=== PATIENT | male | born 1930 | race Caucasian/White ===

== ENCOUNTER 2019-02-02 07:13 | Day surgery (SDC) ==
[2019-02-02] MEDS: BETADINE OPTH PREP OP PRN ×2 (07:19→08:45)
[2019-02-02] MEDS: TETRACAINE 0.5% UNIT-DOSE OP PRN ×2 (07:19→08:45)
[2019-02-02] MEDS: CYCLOGYL 2% OPTH OP PRN ×3 (07:20→07:30)
[2019-02-02] MEDS ORDERED: ZOFRAN 4 MG/2 ML IVP ONE (07:35)
[2019-02-02] MEDS ORDERED: LIDOCAINE 1% 20 ML MDV ID STA (07:35)
[2019-02-02 07:40] VITALS: TEMP 97.5
[2019-02-02] MEDS: DEX-MOXI-KETOR OPTH INJ 1/0.5/0.4 MG/ML IO ONE ×2 (08:50→08:58)
[2019-02-02] MEDS: BSS WITH EPINEPHRINE OP ONE ×2 (08:50→08:58)
[2019-02-02] MEDS: LIDOCAINE 1%/PHENYLEPHRINE 1.5% BSS (SURGERY) INTRAOCULA ONE ×2 (08:50→08:58)
[2019-02-02] MEDS ORDERED: VERSED ONE (08:55)
[2019-02-02] MEDS ORDERED: ZOFRAN 4 MG/2 ML ONE (08:55)
[2019-02-02] MEDS ORDERED: SUBLIMAZE ONE (08:55)
[2019-02-02 09:28] VITALS: BP 135/75
== END 2019-02-02 10:00 | disposition home or self-care (01) ==
LOC: SURG 07:13
PROVIDERS: ATTEND Ophthalmology
DX: H25.812 Combined forms of age-related cataract, left eye (principal)

== ENCOUNTER 2019-02-15 07:28 | Day surgery (SDC) ==
[2019-02-15] MEDS: BETADINE OPTH PREP OP PRN ×2 (07:50→08:59)
[2019-02-15] MEDS: TETRACAINE 0.5% UNIT-DOSE OP PRN ×2 (07:50→08:50)
[2019-02-15] MEDS: CYCLOGYL 2% OPTH OP PRN ×3 (07:51→08:01)
[2019-02-15] MEDS ORDERED: BSS WITH EPINEPHRINE OP ONE (07:59)
[2019-02-15] MEDS ORDERED: ZOFRAN 4 MG/2 ML IVP ONE (07:59)
[2019-02-15] MEDS ORDERED: LIDOCAINE 1% 20 ML MDV ID STA (07:59)
[2019-02-15] MEDS: LIDOCAINE 1%/PHENYLEPHRINE 1.5% BSS (SURGERY) INTRAOCULA ONE ×2 (09:00→09:15)
[2019-02-15] MEDS: DEX-MOXI-KETOR OPTH INJ 1/0.5/0.4 MG/ML IO ONE ×2 (09:00→09:15)
[2019-02-15] MEDS ORDERED: VERSED ONE (09:06)
[2019-02-15] MEDS ORDERED: ZOFRAN 4 MG/2 ML ONE (09:06)
[2019-02-15] MEDS ORDERED: SUBLIMAZE ONE (09:06)
[2019-02-15 13:23] VITALS: BP 135/68; TEMP 96.8
== END 2019-02-15 09:55 | disposition home or self-care (01) ==
LOC: SURG 07:28
PROVIDERS: ATTEND Ophthalmology
DX: H25.811 Combined forms of age-related cataract, right eye (principal)